=== PATIENT | female | born 1995 | race Caucasian/White ===

== ENCOUNTER 2018-09-24 19:20 | Emergency (ER) | payer OTHER ==
[~2018-09-24] VITALS: Ht 162.6 cm; Wt 45.5 kg
[2018-09-24] MEDS ORDERED: LIDOCAINE 5% TRANSDERMAL PATCH TD ONE (21:00)
[2018-09-24] MEDS: KETOROLAC TROMETHAMINE 30 MG/ML VIAL IM ONE ×2 (21:06→21:14)
[2018-09-24 21:10] LABS: APPEARANCE,URINE CLOUDY (CLEAR); BILIRUBIN,URINE NEGATIVE (NEGATIVE); GLUCOSE, URINE (UA) NEGATIVE (NEGATIVE); KETONES,URINE NEGATIVE (NEGATIVE); LEUKOCYTE ESTERASE ,URINE MODERATE (NEGATIVE); NITRATE,URINE NEGATIVE (NEGATIVE); OCCULT BLOOD,URINE NEGATIVE (NEGATIVE); PROTEIN,URINE NEGATIVE (NEGATIVE); UROBILINOGEN,URINE 0.2 mg/dL (<=1.0)
[2018-09-24] MEDS ORDERED: IBUPROFEN 600 MG TABLET PO ONE (21:30)
[2018-09-24 21:35] LABS: BACTERIA,URINE Moderate /HPF (None Seen); RBC,URINE 0-2 /HPF (0-2); SQUAMOUS EPITHELIAL CELL,UR Many /LPF (None Seen)
[2018-09-24] MEDS ORDERED: NITROFURANTOIN/NITROFURAN MAC 100 MG CAPSULE [MACROBID] PO ONE (22:45)
[2018-09-24 23:04] VITALS: BP 118/74
== END 2018-09-24 23:11 | disposition home or self-care (01) ==
LOC: EMS 19:21
DX: N39.0 Urinary tract infection, site not specified (principal)
CPT/HCPCS: 81001; 81025; 84703; 87086; 99284; J1885